=== PATIENT | male | born 1945 | race Caucasian/White ===

== ENCOUNTER → 2016-08-11 | Outpatient (CLI) | payer OTHER ==
[~2016-08-11] MED LIST: AMLODIPINE5 MG; ASPIRIN EC325 MG PO; BUPROBAN150 MG; LEVOTHYROXINE0.1 MG PO; LISINOPRIL10 MG PO; LOVASTATIN40 MG PO; MEN'S MULTIVITA1 TAB; METFORMIN500 MG; OXYBUTYNIN5 MG; PLAVIX75 MG; RANITIDINE150 MG; [UNRECOGNIZED DRUG - OTHER]
[2016-08-11 12:53] LABS: BILIRUBIN NEGATIVE (NEGATIVE); BLOOD NEGATIVE (NEGATIVE); CLARITY SL CLOUDY (CLEAR); COLOR YELLOW (YELLOW); GLUCOSE NEGATIVE (NEGATIVE); KETONE NEGATIVE (NEGATIVE); LEUKO ESTERASE 1+ (NEGATIVE); NITRITE NEGATIVE (NEGATIVE); PROTEIN NEGATIVE (NEGATIVE)
[2016-08-11 12:56] LABS: BASO % 0.5 % (0.0-1.0); EOS # 0.1 10*3/uL (0.0-0.4); EOS % 1.6 % (1.0-4.0); HEMATOCRIT 45.1 % (42.0-52.0); LYMPH # 2.1 10*3/uL (1.3-4.4); LYMPH % 25.2 % (27.0-41.0); MEAN CELL VOLUME 88.6 fl (80.0-94.0); MEAN CORPUSCULAR HGB 29.5 pg (27.0-31.0); MEAN CORPUSCULAR HGB CONC 33.3 g/dl (33.0-37.0); MEAN PLATELET VOLUME 11.3 fl (9.6-12.3); MONO # 0.7 10*3/uL (0.1-1.0); NEUT # 5.3 10*3/uL (2.3-7.9); NEUT % 64.5 % (47.0-73.0); PLATELET COUNT AUTOMATED 231 10*3/uL (130-400); RED BLOOD COUNT 5.09 10*6/uL (4.50-5.90); RED CELL DISTRI WIDTH 16.3 % (0-14.5); WHITE BLOOD COUNT 8.2 10*3/uL (4.8-10.8)
[2016-08-11 13:46] LABS: CALCIUM OXALATE CRYSTALS 1+; EPITHELIAL CELLS 0-2; MUCOUS TRACE
[2016-08-11 15:22] LABS: ALBUMIN 3.7 gm/dl (3.1-4.5); ALKALINE PHOSPHATASE 86 U/L (45-117); BILIRUBIN, TOTAL 0.4 mg/dl (0.2-1.0); BUN 15 mg/dl (7-24); CARBON DIOXIDE 22 mmol/L (21-32); CHLORIDE 109 mmol/L (98-107); CHOLESTEROL 159 mg/dL (<200); EST GLOM FILT AFRICAN AMERICAN > 60 ml/min; GLUCOSE 98 mg/dL (65-99); HDL CHOLESTEROL 49 mg/dl (40-60); LDL CHOLESTEROL 86 mg/dL (9-159); POTASSIUM 3.9 mmol/L (3.5-5.1); SGOT/AST 29 IU/L (3-35); SGPT/ALT 22 U/L (12-78); SODIUM 144 mmol/L (136-145); TOTAL PROTEIN 8.2 gm/dL (6.4-8.2); TRIGLYCERIDES 120 mg/dl (<150); VLDL CHOLESTEROL 24 mg/dL (6-40)
== END | disposition home or self-care (01) ==
LOC: LAB 11:48
PROVIDERS: Internal Medicine
DX: Z12.5 Encounter for screening for malignant neoplasm of prostate (principal); E78.5 Hyperlipidemia, unspecified; R53.83 Other fatigue; I65.23 Occlusion and stenosis of bilateral carotid arteries

== ENCOUNTER → 2016-08-18 | Outpatient (CLI) | payer OTHER | END | disposition home or self-care (01) | LOC: US 01:56 | DX: Z12.5 Encounter for screening for malignant neoplasm of prostate (principal); I65.23 Occlusion and stenosis of bilateral carotid arteries; R53.83 Other fatigue ==

== ENCOUNTER → 2016-11-18 | Outpatient (CLI) | payer OTHER | END | disposition home or self-care (01) | LOC: US 10:55 | DX: L03.116 Cellulitis of left lower limb (principal); R60.0 Localized edema ==

== ENCOUNTER → 2017-08-25 | Outpatient (CLI) | payer OTHER ==
[2017-08-25 11:36] LABS: BASO % 0.6 % (0.0-1.0); EOS # 0.1 10*3/uL (0.0-0.4); EOS % 1.8 % (1.0-4.0); HEMATOCRIT 43.3 % (42.0-52.0); HEMOGLOBIN 14.2 g/dl (14.0-18.0); LYMPH # 1.7 10*3/uL (1.3-4.4); LYMPH % 24.3 % (27.0-41.0); MEAN CELL VOLUME 89.8 fl (80.0-94.0); MEAN CORPUSCULAR HGB 29.5 pg (27.0-31.0); MEAN CORPUSCULAR HGB CONC 32.8 g/dl (33.0-37.0); MEAN PLATELET VOLUME 11.6 fl (9.6-12.3); MONO # 0.5 10*3/uL (0.1-1.0); MONO % 7.7 % (3.0-9.0); NEUT # 4.4 10*3/uL (2.3-7.9); NEUT % 64.7 % (47.0-73.0); PLATELET COUNT AUTOMATED 211 10*3/uL (130-400); RED BLOOD COUNT 4.82 10*6/uL (4.50-5.90); RED CELL DISTRI WIDTH 15.5 % (0-14.5); WHITE BLOOD COUNT 6.8 10*3/uL (4.8-10.8)
[2017-08-25 11:45] LABS: ALBUMIN 3.6 gm/dl (3.1-4.5); ALKALINE PHOSPHATASE 92 U/L (45-117); BUN 14 mg/dl (7-24); CHLORIDE 111 mmol/L (98-107); CREATININE 1.09 mg/dL (0.70-1.30); POTASSIUM 3.9 mmol/L (3.5-5.1); SGOT/AST 20 IU/L (3-35); SGPT/ALT 21 U/L (12-78); SODIUM 142 mmol/L (136-145); TOTAL PROTEIN 8.3 gm/dL (6.4-8.2)
== END | disposition home or self-care (01) ==
LOC: CT 10:00 → LAB 10:51
PROVIDERS: Urology
DX: K57.30 Diverticulosis of large intestine without perforation or abscess without bleeding (principal); R91.1 Solitary pulmonary nodule; E78.00 Pure hypercholesterolemia, unspecified; Z90.49 Acquired absence of other specified parts of digestive tract

== ENCOUNTER → 2017-11-18 | Outpatient (CLI) | payer OTHER | END | disposition home or self-care (01) | LOC: NM 09:46 | DX: C61 Malignant neoplasm of prostate (principal) ==

== ENCOUNTER → 2017-12-01 | Outpatient (CLI) | payer OTHER | END | disposition home or self-care (01) | LOC: RAD 11:27 | DX: M17.11 Unilateral primary osteoarthritis, right knee (principal); M19.019 Primary osteoarthritis, unspecified shoulder; M19.031 Primary osteoarthritis, right wrist; R93.89 Abnormal findings on diagnostic imaging of other specified body structures ==

== ENCOUNTER → 2017-12-15 | Outpatient (CLI) | payer OTHER ==
--- NOTE | ~2017-12-15 | EKG ---
[place], [place] ELECTROCARDIOGRAM REPORT NAME: JUSTIN OWUSU UNIT #: [id number] ROOM: DOCTOR: EPIPHANY DRAFT REPORT BIRTHDATE: [address] [facility] Test Date: 2017-12-15 Test Time: 13:45:38 Pat Name: JUSTIN OWUSU Department: Room: Gender: Automation Software Engineer: Stefanie Juárez : 1945 Requested By: JENNIFER ELLIOTT Order Number: [id number] Reading MD: Jeff Crump MD Measurements Intervals Edmond Rate: 90 P: 62 NM: 154 QRS: -48 QRSD: 75 T: 42 QT: 378 QTc: 463 Interpretive Statements Sinus rhythm Left anterior fascicular block Low voltage, extremity leads Borderline ST depression, anterior leads Baseline wander in lead(s) V2, V3, V4 No previous ECG available for comparison Electronically Signed On 12-15-2017 17:41:36 PDT by Jeff Crump MD CM:EKGRPT:ELECTROCARDIOGRAM REPORT [id number] JENNIFER SAMAYOA DRAFT REPORT JENNIFER ELLIOTT
[2017-12-15 14:31] LABS: ALBUMIN 3.7 gm/dl (3.1-4.5); ALKALINE PHOSPHATASE 98 U/L (45-117); BUN 18 mg/dl (7-24); CHLORIDE 106 mmol/L (98-107); CREATININE 1.05 mg/dL (0.70-1.30); POTASSIUM 3.9 mmol/L (3.5-5.1); SGOT/AST 25 IU/L (3-35); SGPT/ALT 23 U/L (12-78); SODIUM 139 mmol/L (136-145); TOTAL PROTEIN 8.7 gm/dL (6.4-8.2)
[2017-12-15 14:56] LABS: BASO % 0.5 % (0.0-1.0); EOS # 0.1 10*3/uL (0.0-0.4); EOS % 1.3 % (1.0-4.0); HEMATOCRIT 44.9 % (42.0-52.0); HEMOGLOBIN 14.3 g/dl (14.0-18.0); LYMPH # 1.6 10*3/uL (1.3-4.4); LYMPH % 21.1 % (27.0-41.0); MEAN CELL VOLUME 91.4 fl (80.0-94.0); MEAN CORPUSCULAR HGB 29.1 pg (27.0-31.0); MEAN CORPUSCULAR HGB CONC 31.8 g/dl (33.0-37.0); MEAN PLATELET VOLUME 11.5 fl (9.6-12.3); MONO # 0.7 10*3/uL (0.1-1.0); MONO % 8.9 % (3.0-9.0); NEUT # 5.2 10*3/uL (2.3-7.9); NEUT % 67.9 % (47.0-73.0); PLATELET COUNT AUTOMATED 253 10*3/uL (130-400); RED BLOOD COUNT 4.91 10*6/uL (4.50-5.90); RED CELL DISTRI WIDTH 15.4 % (0-14.5); WHITE BLOOD COUNT 7.7 10*3/uL (4.8-10.8)
== END | disposition home or self-care (01) ==
LOC: LAB 13:07
PROVIDERS: Nurse Practitioner Family
DX: Z01.818 Encounter for other preprocedural examination (principal); J43.9 Emphysema, unspecified; I10 Essential (primary) hypertension; N39.0 Urinary tract infection, site not specified; Z87.891 Personal history of nicotine dependence

== ENCOUNTER 2017-12-31 11:35 | Emergency (ER) | payer OTHER ==
[~2017-12-31] VITALS: Ht 175.2 cm; Wt 96.2 kg
== END 2017-12-31 15:56 | disposition short-term general hospital (02) ==
LOC: ED 11:35
DX: T83.84XA Pain due to genitourinary prosthetic devices, implants and grafts, initial encounter (principal); N99.820 Postprocedural hemorrhage of a genitourinary system organ or structure following a genitourinary system procedure

== ENCOUNTER → 2018-03-17 | Outpatient (CLI) | payer OTHER ==
[2018-03-18 09:09] LABS: PROSTATE SPECIFIC AG FREE 2.74 ng/mL; PROSTATE SPECIFIC AG, SERUM 7.2 ng/mL (0.0-4.0)
== END | disposition home or self-care (01) ==
LOC: LAB 13:32
PROVIDERS: Urology
DX: C61 Malignant neoplasm of prostate (principal)

== ENCOUNTER → 2018-05-13 | Outpatient (CLI) | payer OTHER ==
[2018-05-13 14:32] LABS: BASO % 0.6 % (0.0-1.0); EOS # 0.2 10*3/uL (0.0-0.4); EOS % 2.3 % (1.0-4.0); HEMATOCRIT 43.9 % (42.0-52.0); HEMOGLOBIN 14.2 g/dl (14.0-18.0); MEAN CELL VOLUME 86.8 fl (80.0-94.0); MEAN CORPUSCULAR HGB 28.1 pg (27.0-31.0); MEAN CORPUSCULAR HGB CONC 32.3 g/dl (33.0-37.0); MEAN PLATELET VOLUME 11.6 fl (9.6-12.3); MONO # 0.5 10*3/uL (0.1-1.0); MONO % 7.6 % (3.0-9.0); NEUT # 4.1 10*3/uL (2.3-7.9); NEUT % 60.1 % (47.0-73.0); PLATELET COUNT AUTOMATED 241 10*3/uL (130-400); RED BLOOD COUNT 5.06 10*6/uL (4.50-5.90); RED CELL DISTRI WIDTH 16.6 % (0-14.5); WHITE BLOOD COUNT 6.8 10*3/uL (4.8-10.8)
[2018-05-13 14:49] LABS: ALBUMIN 3.2 gm/dl (3.1-4.5); ALKALINE PHOSPHATASE 108 U/L (45-117); BUN 15 mg/dl (7-24); CHLORIDE 109 mmol/L (98-107); CREATININE 1.05 mg/dL (0.70-1.30); POTASSIUM 3.7 mmol/L (3.5-5.1); SGOT/AST 24 IU/L (3-35); SGPT/ALT 17 U/L (12-78); SODIUM 140 mmol/L (136-145); TOTAL PROTEIN 8.5 gm/dL (6.4-8.2)
[2018-05-14 08:15] LABS: PROSTATE SPECIFIC AG FREE 0.12 ng/mL; PROSTATE SPECIFIC AG, SERUM 0.2 ng/mL (0.0-4.0)
== END | disposition home or self-care (01) ==
LOC: LAB 13:37
PROVIDERS: Urology
DX: D40.0 Neoplasm of uncertain behavior of prostate (principal); E11.9 Type 2 diabetes mellitus without complications

== ENCOUNTER 2018-10-28 16:21 | Inpatient (IN) | payer OTHER ==
[~2018-10-28] VITALS: Ht 175.2 cm; Wt 99.3 kg
--- NOTE | 2018-10-28 17:00 | NUR ---
Time: 1699 A 73 year old MALE admitted to under services of DR. JAYSON KU,MAURO. [place]. Chief complaint: CELLULITIS OF LEG. FENG MOSQUEDA
--- NOTE | 2018-10-28 18:13 | NUR ---
DR. LOPEZ'S RESIDENT NOTIFIED OF CONSULT.
[2018-10-28] MEDS ORDERED: FUROSEMIDE40 MG PO (18:36)
[2018-10-28] MEDS ORDERED: SIMVASTATIN40 MG PO (18:36)
[2018-10-28] MEDS ORDERED: GOOD NEIGHBOR150 MG PO (18:37)
[2018-10-28] MEDS ORDERED: TAMSULOSIN HCL0.4 MG PO (18:38)
[2018-10-28] MEDS ORDERED: VITAMIN D32000 UNI1 PO (18:39)
[2018-10-28] MEDS ORDERED: BUDEPRION XL150 MG PO (18:41)
[2018-10-28 18:51] LABS: BASO % 0.4 % (0.0-1.0); EOS # 0.2 10*3/uL (0.0-0.4); HEMATOCRIT 42.8 % (42.0-52.0); HEMOGLOBIN 13.8 g/dl (14.0-18.0); LYMPH # 2.1 10*3/uL (1.3-4.4); LYMPH % 20.4 % (27.0-41.0); MEAN CELL VOLUME 90.9 fl (80.0-94.0); MEAN CORPUSCULAR HGB 29.3 pg (27.0-31.0); MEAN CORPUSCULAR HGB CONC 32.2 g/dl (33.0-37.0); MEAN PLATELET VOLUME 10.8 fl (9.6-12.3); MONO # 0.7 10*3/uL (0.1-1.0); MONO % 6.3 % (3.0-9.0); NEUT # 7.2 10*3/uL (2.3-7.9); NEUT % 70.5 % (47.0-73.0); PLATELET COUNT AUTOMATED 258 10*3/uL (130-400); RED BLOOD COUNT 4.71 10*6/uL (4.50-5.90); RED CELL DISTRI WIDTH 16.4 % (0-14.5); WHITE BLOOD COUNT 10.3 10*3/uL (4.8-10.8)
[2018-10-28 19:02] LABS: ALBUMIN 3.3 gm/dl (3.1-4.5); CREATININE 1.62 mg/dL (0.70-1.30); POTASSIUM 3.9 mmol/L (3.5-5.1); TOTAL PROTEIN 8.6 gm/dL (6.4-8.2)
[2018-10-28 20:00] VITALS: BP 144/72
--- NOTE | 2018-10-28 22:54 | NUR ---
24 HR chart check completed.
[2018-10-29] VITALS: BP 137/77
[2018-10-29 08:00] VITALS: BP 154/80
--- NOTE | 2018-10-29 08:32 | NUR ---
PHYSICAL THERAPY Nursing screen received and chart reviewed. Please refer PT evaluation if functional mobility declines. Thank you. Colleen Gomes,PT,DPT.
--- NOTE | 2018-10-29 11:00 | NUR ---
Ditching Machine Operating Engineer in to talk to patient. Patient states lives at home alone with . There are basement steps in the home. Physician: Dr. Haile Guillermo Pharmacy: [facility] Home health services: none Patient's level of ADLs: MINIMAL ASSIST Patient has working utilities: yes DME: cane Follow-up physician's appointment after d/c: he prefers to make his own follow up appt after discharge Does patient want to access PORTAL?: no Discharge plan discussed with patient. He lives at home alone. His passed 4 years ago. One of his daughters overdosed a couple of years ago. She and her fiance lived with him at the time. His other daughter per him has nothing to do with him. He states as far as she is concerned I'm to her. He is independent in his ADLs and ambulates with a cane. He states he is able to cook and shower. His only problem is getting his groceries. His neighbor has been helping him but it is not consistent. He states he only buys groceries once a month when he gets his check. Discussed home delivery. He states he doesn't have a computer. Discussed [employer] for food delivery and he doesn't want anyone coming in his house. Explained they would just drop of the food, not make it in his house and he was agreeable. Discussed with social welfare administrator. home mission worker to give patient information on [employer] and home delivery. Discussed home health care services and he refuses. He states I had them a few weeks ago and they are not able to help me with what I need help with like buying groceries. They gave me a couple of numbers to call but I was not able to find any help. When medically stable he will be discharged to home. He does drive and his car is here and he plans on driving home. KENDRICK FAGAN
--- NOTE | 2018-10-29 11:58 | NUR ---
JUSTIN OWUSU [id number] Please refer to the physician's history and physical for past medical history, comorbid conditions, and allergies. Diagnosis: LEFT LEG CELLULITIS FAILED OUTPT TREATMENT Josef Score: 16,AT RISK WOUND DESCRIPTIONS: Wound Number: 1 Location of the wound: left lower leg Thickness: Full Size: 7.1cm x 8.8cm x 0.1cm Tunneling: none Undermining: none Sinus Tract: none Presence of Exudate: Serous sanguineous Amount: Light Color: Yellow, Brown Odor: None Periwound Skin Appearance: Erythema, Edema Wound edges: approximated Pain (associated with wound): tender to touch How does patient state this happened? patient states that he has been dealing with this area for "months." If wound is on legs/feet or hands, capillary refill time, pulses, color temp, sensation: Cap refill < 3 seconds. Surface the patient is resting on: Position Pro SKIN PREVENTION RECOMMENDATION: 1. Pressure redistribution support surface as appropriate 2. Elevate heels 3. Remove boots/TEDS every shift and reapply 4. Head of bed 30 degrees as tolerated 5. Assess nutrition and hydration 6. Manage moisture 7. Avoid the use of containment devices while in bed 8. Use absorptive products on surfaces limit layers of linens on bed 9. Turn and reposition every 1-2 hours in bed and every 1 hour in chair as tolerated 10. Weight shifts every 15 minutes while up in chair 11. Offloading with pillows or device to keep heels elevated off bed 12. Monitor skin at least every shift 13. Inspect under medical devices twice a day WOUND TREATMENT RECOMMENDATIONS: Dr. Guillermo in room during assessment. Stated he would like to wait for podiatry to see patient. This nurse asked Dr. Guillermo if adaptic and kerlix could be place to left lower leg due to drainage. Dr. Guillermo agreed and dressing was applied. Continue Stage 2 guidelines to right buttock.
--- NOTE | 2018-10-29 12:20 | NUR ---
SUPPLY CRIB ATTENDANT received notice of the patient needing information on food services. SUPPLY CRIB ATTENDANT provided the patient with a list of meal delivery services along with the information for [facility] grocery delivery services. SUPPLY CRIB ATTENDANT also contacted the patients insurance to inquire about meal benefits. The patient does not have any meal benefits through his insurance. -DAYO Limon
--- NOTE | 2018-10-29 12:40 | NUR ---
A MESSAGE WAS LEFT FOR DR. DEGROOT REGARDING CONSULT.
[2018-10-29] MEDS ORDERED: POTASSIUM CHLO10 ME5 PO (12:53)
[2018-10-29] MEDS ORDERED: KLOR-CON 1010 ME1 PO (12:53)
--- NOTE | 2018-10-29 13:35 | NUR ---
Nursing screen received and chart reviewed. Patient admitted w/ LLE cellulitis. He lives home alone and is independent in ADLs and mobility. At this time no OT indicated. If patient should have a decline in ADls then refer to OT. Thank you. Cielo Pineda OTR/l
[2018-10-29 16:00] VITALS: BP 106/69
--- NOTE | 2018-10-29 16:09 | NUR ---
IN TO ROOM. PATIENT SITTING ON SIDE OF BED. NO S/S OF SOB OR DISTRESS NOTED. NO STATED COMPLAINTS AT THIS TIME. PATIENT STATES NICOTINE PATCH IS HELPING. RESPIRATIONS ARE EASY AND REGULAR ON ROOM AIR. DENIES PAIN. BED IN LOWEST LOCKED POSITION AND CALL LIGHT WITHIN REACH.
[2018-10-29 20:00] VITALS: BP 127/72
--- NOTE | 2018-10-29 20:00 | NUR ---
PATIENT SITTING TO SIDE OF BED, STATES HE CAN TELL A DIFFERENCE IN HIS RT LEG. LESS SWELLING AND REDNESS. LT LEG WRAPPED, DRY AND INTACT. PATIENT DENIES ANY PAIN AT THIS TIME. HAVING NICOTINE WITHDRAWL, WEARING A PATCH, HE STATES IS NOT EFFECTIVE. PATIENT HOPING TO GO HOME SOON. PATIENT LEFT WITH CALL LIGHT IN REACH.
[2018-10-30] VITALS: BP 128/89
--- NOTE | 2018-10-30 00:42 | NUR ---
24 HR chart check completed.
[2018-10-30 08:00] VITALS: BP 111/61
--- NOTE | 2018-10-30 10:45 | NUR ---
IN TO SEE PATIENT.
[2018-10-30 12:00] VITALS: BP 110/69
--- NOTE | 2018-10-30 15:35 | NUR ---
PATIENT UP IN CHAIR. NO DISTRESS NOTED. DRESSING D/I TO LLE. PT DENIES ANY PAIN/DISCOMFORT AT THIS TIME. ENCOURAGED TO ELEVATE BLLE. WILL CONTINUE TO MONITOR. VSS. CALL LIGHT WITHIN REACH.
[2018-10-30 16:00] VITALS: BP 120/63
[2018-10-30 20:00] VITALS: BP 134/81
[2018-10-31] VITALS: BP 127/68
--- NOTE | 2018-10-31 00:44 | NUR ---
24 HR chart check completed.
--- NOTE | 2018-10-31 04:00 | NUR ---
SLEEPING IN RECLINER CHAIR FEET ELEVATED. RESP. EASY AND REG. NO ACUTE DISTRESS NOTED.
[2018-10-31 08:00] VITALS: BP 127/74
[2018-10-31 12:00] VITALS: BP 140/61
--- NOTE | 2018-10-31 12:44 | NUR ---
DRESSING TO LEFT LOWER LEG REMOVED AND REAPPLIED BY PODIATARY RESIDENT
--- NOTE | 2018-10-31 14:59 | NUR ---
IV started right forearm with #22 angiocath after 0 attempts. The IV site was prepped with Chloraprep. Heparin lock attached. Sterile dressing applied. Patient tolerated precedure well. Procedure performed according to [facility] policy & procedure. IV LEFT FA D/C, DRESSING APPLIED CORAZON LILLY
[2018-10-31 16:00] VITALS: BP 115/58
--- NOTE | 2018-10-31 20:00 | NUR ---
ALERT ORIENTED X 3 SITTING IN RECLINER CHAIR. LUNG SOUNDS CLEAR BILAT. ABD SOFT NORMOACTIVE BOWEL SOUNDS X 4. BOTH LOWER LEGS DRESSING INTACT. TOES NAILS LONG DARK BROWN YELLOW. PT. STATES UN ABLE TO CUT THEM BECAUSE HE CAN'T REACH THEM.
--- NOTE | 2018-10-31 22:00 | NUR ---
PT. REFUSED BEDSIDE GLUCOSE STATED TIRED OF HAVING HIS FINGERS STUCK SO MUCH BUT HE WOULD HAVE MORNING ONE DONE.
[2018-11-01] VITALS: BP 147/83
--- NOTE | 2018-11-01 01:56 | NUR ---
24 HR chart check completed.
--- NOTE | 2018-11-01 03:44 | NUR ---
PATIENT RESTING WITH EYES CLOSED IN CHAIR WITH FEET ELEVATED. RESPIRATIONS EASY AND UNLABORED. CALL LIGHT WITHIN REACH. WILL MONITOR.
--- NOTE | 2018-11-01 05:36 | NUR ---
PATIENT REFUSING BEDSIDE GLUCOSE. STATES THAT HE DOES NOT TAKE IT AT HOME AND DOESNT UNDERSTAND WHY HE HAS TO TAKE IT HERE. ALSO STATES THAT HIS FINGERS ARE SORE FROM IT BEING CHECKED. WILL FOLLOW UP WITH .
--- NOTE | 2018-11-01 07:30 | NUR ---
PATIENT REFUSED BLOOD SUGAR. RATIONAL GIVEN FOR TAKING BLOOD SUGAR. PATIENT STILL REFUSES.
[2018-11-01 08:00] VITALS: BP 144/74
[2018-11-01 08:39] LABS: BASO % 0.4 % (0.0-1.0); EOS # 0.3 10*3/uL (0.0-0.4); EOS % 3.7 % (1.0-4.0); HEMATOCRIT 39.5 % (42.0-52.0); HEMOGLOBIN 12.8 g/dl (14.0-18.0); LYMPH # 1.5 10*3/uL (1.3-4.4); LYMPH % 21.2 % (27.0-41.0); MEAN CELL VOLUME 90.4 fl (80.0-94.0); MEAN CORPUSCULAR HGB 29.3 pg (27.0-31.0); MEAN CORPUSCULAR HGB CONC 32.4 g/dl (33.0-37.0); MEAN PLATELET VOLUME 10.8 fl (9.6-12.3); MONO # 0.5 10*3/uL (0.1-1.0); MONO % 7.3 % (3.0-9.0); NEUT # 4.8 10*3/uL (2.3-7.9); NEUT % 67.1 % (47.0-73.0); PLATELET COUNT AUTOMATED 229 10*3/uL (130-400); RED BLOOD COUNT 4.37 10*6/uL (4.50-5.90); RED CELL DISTRI WIDTH 16.4 % (0-14.5); WHITE BLOOD COUNT 7.1 10*3/uL (4.8-10.8)
[2018-11-01 09:03] LABS: BUN 12 mg/dl (7-24); CREATININE 1.03 mg/dL (0.70-1.30)
--- NOTE | 2018-11-01 11:12 | NUR ---
PATIENT REFUSES BLOOD SUGAR. RATIONAL GIVEN FOR TAKING BLOOD SUGAR. PATIENT STILL DECLINES.
--- NOTE | 2018-11-01 13:35 | NUR ---
24 HOUR CHART CHECK COMPLETE.
[2018-11-01 16:00] VITALS: BP 138/75
--- NOTE | 2018-11-01 16:34 | NUR ---
PATIENT REFUSED TO HAVE BLOOD SUGAR CHECKED. RATIONAL GIVEN FOR TAKING BLOOD SUGAR. PATIENT STILL REFUSES.
--- NOTE | 2018-11-01 21:31 | NUR ---
REFUSED BSG CHECK.
[2018-11-02] VITALS: BP 148/79
[2018-11-02 08:00] VITALS: BP 151/80
--- NOTE | 2018-11-02 08:00 | NUR ---
Patient resting quietly with no c/o discomfort. Respirations easy and regular. Vital signs stable. No overt distress. CALL LIGHT WITHIN REACH. QUIQUE INIGUEZ
--- NOTE | 2018-11-02 09:00 | NUR ---
Patient Navigator in to see patient. No new needs or request at this time. He denies any home needs. When medically stable he will be discharged to home.
[2018-11-02 12:00] VITALS: BP 148/78
--- NOTE | 2018-11-02 12:37 | NUR ---
24 HOUR CHART CHECK COMPLETED.
--- NOTE | 2018-11-02 15:55 | NUR ---
PATIENT REFUSED BLOOD SUGAR CHECK. RATIONAL FOR BLOOD SUGAR EXPLAINED. PATIENT STILL REFUSED.
[2018-11-02 20:00] VITALS: BP 145/76
[2018-11-03] VITALS: BP 159/69
--- NOTE | 2018-11-03 00:23 | NUR ---
REMAINS IN RECLINER CHAIR AT BEDSIDE. NO C/O'S VOICED. NO DISTRESS NOTED. KAYLEE WRAPS INTACT TO BILATERAL LOWER EXTREMITIES. NO DRNG NOTED. HEP LOCK INTACT.
--- NOTE | 2018-11-03 02:17 | NUR ---
RESTING IN RECLINER WITH EYES CLOSED. APPEARS TO BE SLEEPING.
[2018-11-03 06:55] LABS: BUN 12 mg/dl (7-24); CHLORIDE 107 mmol/L (98-107); CREATININE 0.93 mg/dL (0.70-1.30); POTASSIUM 3.3 mmol/L (3.5-5.1); SODIUM 139 mmol/L (136-145)
--- NOTE | 2018-11-03 07:58 | NUR ---
PT RESTING IN CHAIR . NO DISTRESS NOTED. WILL MONITOR
[2018-11-03 08:00] VITALS: BP 147/77
--- NOTE | 2018-11-03 09:00 | NUR ---
Bender Hand in to see patient. He is sitting up in his bedside chair eating breakfast. No new needs or request at this time. He denies any home needs. When medically stable he will be discharged to home.
[2018-11-03 12:00] VITALS: BP 119/80
[2018-11-03] MEDS ORDERED: SEPTDS PO (13:45)
[2018-11-03] MEDS ORDERED: KEFLEX500 M1 PO (13:45)
--- NOTE | 2018-11-03 13:54 | NUR ---
Discussed with patient Anastacio Navarro call ahead for groceries to be delivered. He states he gets his groceries from [employer]. Patient has information in his bedside table from social work administrator regarding meals on wheels. He states that is $7 for a meal, I might as well buy my own food and make it. Explained if he is having difficulty in getting his meals that is a way to have meals delivered. He states he doesn't want anyone coming into his house as it needs cleaned. Explained they would just drop off the meals to him and not cook them in his house.
--- NOTE | 2018-11-03 14:09 | NUR ---
CALLED AND SPOKE PODIATRY RESIDENT REGARDING PT DC . KAYLEE WRAPS TO BE APPLIED AND THEN PT TO FOLLOW UP WITH DR CELESTE
--- NOTE | 2018-11-03 14:33 | NUR ---
PT REFUSED DC WOUND PHOTOS
--- NOTE | 2018-11-03 14:58 | NUR ---
TUBE BLOWER followed back up with patient from 10/29/18. TUBE BLOWER provided patient with information on Food Pantries in the local area, along with a drive through pantry. TUBE BLOWER also provided patient with information for [employer] services and information to apply for [employer]. If eligible he would be able to have the [employer] delivered for free. The patient was explained this. The patient also stated he has the information from 10/29/18 in his dresser drawer there in the room. -DAYO Limon
--- NOTE | 2018-11-03 15:30 | NUR ---
PATIENT FRIEND WAS AT BEDSIDE. PATIENT HAD DROVE HIMSELF IN AND STATES HE WILL BE DRIVING HIMSELF HOME, STATES HE IS ABLE TO USE HIS FOOT. PATIENT REFUSING ANY OTHER MEANS OF TRANSPORTATION. PATIENT IS ALERT & ORIENT X3.
--- NOTE | 2018-11-03 15:32 | NUR ---
Discharge instructions reviewed with patient/family. Patient receptive and verbalizes understanding. Follow-up care TO arranged BY PATIENT. Written instructions given to patient/family. IV WAS REMOVED BY PRIOR NURSE. PATIENT REFUSED WOUND PHOTOS ON DISCHARGE. SHARAD TARIQ
== END 2018-11-03 15:32 | disposition home or self-care (01) | DRG 602 ==
LOC: 4E 16:21
PROVIDERS: ADMIT Internal Medicine
DX: L03.116 Cellulitis of left lower limb (principal); N17.0 Acute kidney failure with tubular necrosis; L97.909 Non-pressure chronic ulcer of unspecified part of unspecified lower leg with unspecified severity; R32 Unspecified urinary incontinence; E03.9 Hypothyroidism, unspecified; E78.5 Hyperlipidemia, unspecified; K21.9 Gastro-esophageal reflux disease without esophagitis; N40.0 Benign prostatic hyperplasia without lower urinary tract symptoms; F17.210 Nicotine dependence, cigarettes, uncomplicated; M17.0 Bilateral primary osteoarthritis of knee; B35.1 Tinea unguium; F32.9 Major depressive disorder, single episode, unspecified; E55.9 Vitamin D deficiency, unspecified; E53.8 Deficiency of other specified B group vitamins; R60.0 Localized edema; E11.51 Type 2 diabetes mellitus with diabetic peripheral angiopathy without gangrene; C61 Malignant neoplasm of prostate; I87.8 Other specified disorders of veins; Z66 Do not resuscitate; Z51.5 Encounter for palliative care; Z86.73 Personal history of transient ischemic attack (TIA), and cerebral infarction without residual deficits; Z80.0 Family history of malignant neoplasm of digestive organs; Z83.79 Family history of other diseases of the digestive system; Z79.899 Other long term (current) drug therapy

== ENCOUNTER 2019-05-20 20:44 | Inpatient (IN) | payer OTHER ==
[~2019-05-20] VITALS: Ht 175.2 cm; Wt 102.7 kg
[2019-05-20 20:44] VITALS: BP 150/99
[~2019-05-20 20:44] MED LIST changes: +BUDEPRION XL150 MG PO; +FUROSEMIDE40 MG PO; +GOOD NEIGHBOR150 MG PO; +KEFLEX500 M1 PO; +KLOR-CON 1010 ME1 PO; -OXYBUTYNIN5 MG; +OXYBUTYNIN5 MG PO; +POTASSIUM CHLO10 ME5 PO; +SEPTDS PO; +SIMVASTATIN40 MG PO; +TAMSULOSIN HCL0.4 MG PO; +VITAMIN D32000 UNI1 PO
[2019-05-20 22:15] LABS: BILIRUBIN NEGATIVE (NEGATIVE); BLOOD 3+ (NEGATIVE); CLARITY CLOUDY (CLEAR); COLOR YELLOW (YELLOW); GLUCOSE NEGATIVE (NEGATIVE); KETONE NEGATIVE (NEGATIVE); LEUKO ESTERASE 2+ (NEGATIVE); NITRITE NEGATIVE (NEGATIVE); UROBILINOGEN 0.2 E.U./dl (0.2-1.0)
[2019-05-20 22:20] LABS: BACTERIA 4+; RBC TNTC rbc/hpf (0-2); WBC TNTC wbc/hpf (0-5)
[2019-05-20 23:03] LABS: BASO % 0.2 % (0.0-1.0); HEMATOCRIT 46.5 % (42.0-52.0); HEMOGLOBIN 15.6 g/dl (14.0-18.0); LYMPH # 0.8 10*3/uL (1.3-4.4); LYMPH % 6.8 % (27.0-41.0); MEAN CELL VOLUME 89.4 fl (80.0-94.0); MEAN CORPUSCULAR HGB CONC 33.5 g/dl (33.0-37.0); MEAN PLATELET VOLUME 10.6 fl (9.6-12.3); MONO # 0.7 10*3/uL (0.1-1.0); MONO % 6.1 % (3.0-9.0); NEUT # 10.2 10*3/uL (2.3-7.9); NEUT % 86.4 % (47.0-73.0); PLATELET COUNT AUTOMATED 252 10*3/uL (130-400); RED CELL DISTRI WIDTH 15.8 % (0-14.5); WHITE BLOOD COUNT 11.9 10*3/uL (4.8-10.8)
[2019-05-20 23:10] LABS: ACT PARTIAL THROMBO TIME 24.2 SECONDS (20.0-32.1)
[2019-05-20 23:12] VITALS: BP 142/96
[2019-05-20 23:14] LABS: ALBUMIN 2.9 gm/dl (3.1-4.5); ALKALINE PHOSPHATASE 96 U/L (45-117); BUN 22 mg/dl (7-24); CHLORIDE 109 mmol/L (98-107); LIPASE 327 U/L (73-393); POTASSIUM 3.9 mmol/L (3.5-5.1); SGOT/AST 448 IU/L (3-35); SGPT/ALT 81 U/L (12-78); SODIUM 137 mmol/L (136-145); TOTAL PROTEIN 8.7 gm/dL (6.4-8.2)
[2019-05-20 23:18] LABS: TROPONIN I < 0.015 ng/ml (<0.045)
[2019-05-21 01:00] VITALS: BP 133/67
[2019-05-21 08:00] VITALS: BP 134/70
[2019-05-21 12:00] VITALS: BP 151/69
[2019-05-21 16:00] VITALS: BP 156/65
[2019-05-21] MEDS ORDERED: WELLBUTRIN XL150 MG PO (16:57)
[2019-05-21 20:00] VITALS: BP 105/64
== END 2019-05-21 20:45 | disposition short-term general hospital (02) | DRG 872 ==
LOC: ED 20:44 → 4E 05-21 00:39
PROVIDERS: Emergency Medicine Emergency Medical Services; ADMIT Internal Medicine
DX: A41.9 Sepsis, unspecified organism (principal); S22.43XA Multiple fractures of ribs, bilateral, initial encounter for closed fracture; N17.9 Acute kidney failure, unspecified; L03.115 Cellulitis of right lower limb; L03.116 Cellulitis of left lower limb; E87.2 Acidosis; F33.2 Major depressive disorder, recurrent severe without psychotic features; L03.114 Cellulitis of left upper limb; L02.512 Cutaneous abscess of left hand; N39.0 Urinary tract infection, site not specified; R65.20 Severe sepsis without septic shock; E88.09 Other disorders of plasma-protein metabolism, not elsewhere classified; S60.522A Blister (nonthermal) of left hand, initial encounter; E11.9 Type 2 diabetes mellitus without complications; K21.9 Gastro-esophageal reflux disease without esophagitis; W19.XXXA Unspecified fall, initial encounter; T79.6XXA Traumatic ischemia of muscle, initial encounter; R31.9 Hematuria, unspecified; Z96.652 Presence of left artificial knee joint; E89.0 Postprocedural hypothyroidism; Z79.899 Other long term (current) drug therapy; Y93.89 Activity, other specified; Y92.098 Other place in other non-institutional residence as the place of occurrence of the external cause; Y99.8 Other external cause status; Z80.0 Family history of malignant neoplasm of digestive organs; Z85.46 Personal history of malignant neoplasm of prostate

== ENCOUNTER 2019-06-15 14:35 | Inpatient (IN) | payer OTHER ==
[~2019-06-15] VITALS: Ht 175.2 cm; Wt 92.2 kg
[2019-06-15] VITALS (13 sets, daily range): BP systolic 105–122; BP diastolic 67–84
[~2019-06-15 14:35] MED LIST changes: +WELLBUTRIN XL150 MG PO
--- NOTE | 2019-06-15 15:15 | NUR ---
PT. INSTRUCTED ON INHALER AND USE. ASSISTED PT. WITH INHALER. PT GIVEN 2 PUFFS OF VENTOLIN INHALERS. TOLERATED WELL.
[2019-06-15 15:44] LABS: BASO % 0.2 % (0.0-1.0); EOS # 0.1 10*3/uL (0.0-0.4); EOS % 1.1 % (1.0-4.0); HEMATOCRIT 28.8 % (42.0-52.0); LYMPH # 1.2 10*3/uL (1.3-4.4); LYMPH % 26.1 % (27.0-41.0); MEAN CELL VOLUME 98.3 fl (80.0-94.0); MEAN CORPUSCULAR HGB 30.4 pg (27.0-31.0); MEAN CORPUSCULAR HGB CONC 30.9 g/dl (33.0-37.0); MEAN PLATELET VOLUME 11.3 fl (9.6-12.3); MONO # 0.3 10*3/uL (0.1-1.0); MONO % 5.8 % (3.0-9.0); NEUT # 2.9 10*3/uL (2.3-7.9); NEUT % 65.2 % (47.0-73.0); NUCLEATED RED BLOOD CELL 0.4 % (0.0-0.0); PLATELET COUNT AUTOMATED 205 10*3/uL (130-400); RED BLOOD COUNT 2.93 10*6/uL (4.50-5.90); RED CELL DISTRI WIDTH 18.7 % (0-14.5); WHITE BLOOD COUNT 4.5 10*3/uL (4.8-10.8)
[2019-06-15 16:00] LABS: ALBUMIN 2.6 gm/dl (3.1-4.5); ALKALINE PHOSPHATASE 107 U/L (45-117); BUN 15 mg/dl (7-24); CHLORIDE 106 mmol/L (98-107); CREATININE 1.01 mg/dL (0.70-1.30); SGOT/AST 68 IU/L (3-35); SGPT/ALT 28 U/L (12-78); SODIUM 139 mmol/L (136-145); TOTAL PROTEIN 7.1 gm/dL (6.4-8.2)
[2019-06-15 16:03] LABS: POTASSIUM 3.2 mmol/L (3.5-5.1)
--- NOTE | 2019-06-15 19:15 | NUR ---
PATIENT REPORT GIVEN TO THIS RN.
[2019-06-15 20:26] LABS: BACTERIA TRACE; BILIRUBIN NEGATIVE (NEGATIVE); BLOOD 2+ (NEGATIVE); CLARITY SL CLOUDY (CLEAR); COLOR YELLOW (YELLOW); GLUCOSE NEGATIVE (NEGATIVE); KETONE NEGATIVE (NEGATIVE); LEUKO ESTERASE TRACE (NEGATIVE); NITRITE NEGATIVE (NEGATIVE); SPECIFIC GRAVITY 1.025 (1.005-1.030); UROBILINOGEN 0.2 E.U./dl (0.2-1.0); WBC 16-20 wbc/hpf (0-5)
--- NOTE | 2019-06-15 21:13 | NUR ---
PATIENT IN BED RESTING EYES AT THIS TIME. NO ACUTE DISTRESS NOTED. CONT FBI PROFILER IN PLACE. RN WILL CONT TO MONITOR
--- NOTE | 2019-06-15 23:17 | NUR ---
A 74, admitted to , under the services of RACHEL Steiner DO with a diagnosis of PNEUMONIA. Chief complaint is SHORTNESS OF BREATH. Patient arrived via stretcher from ER. Monitor applied. Initial assessment completed. Vital signs taken and recorded. RACHEL STEINER DO notified of admission to the unit. Orders received. See assessment for past medical history, medications and allergies. Patient and/or family oriented to unit. [facility]. Clothing/patient valuable form completed. SULEIMAN REMY
[2019-06-15] MEDS ORDERED: ACETAMINOPHEN500 M5 PO (23:47)
[2019-06-15] MEDS ORDERED: ALBUTEROL1.25 MG/3 INH (23:48)
[2019-06-15] MEDS ORDERED: ASPIRIN81 M1 PO (23:50)
[2019-06-15] MEDS ORDERED: ARTIFICIAL TEAR1514 OP (23:50)
[2019-06-15] MEDS ORDERED: POLYSPORIN OI28.3 GM T (23:52)
[2019-06-15] MEDS ORDERED: DULCOLAX10 M1 R (23:53)
[2019-06-15] MEDS ORDERED: DILTIAZEM HCL90 MG PO (23:54)
[2019-06-15] MEDS ORDERED: GOOD SENSE ACID20 MG PO (23:55)
[2019-06-15] MEDS ORDERED: ELIQUIS5 M1 PO (23:55)
[2019-06-15] MEDS ORDERED: LASIX40 MG PO (23:57)
[2019-06-15] MEDS ORDERED: FLEET ENEMA EX230 M1 R (23:57)
[2019-06-15] MEDS ORDERED: HUMALOG100 UNIT/2 SC (23:58)
[2019-06-16] MEDS ORDERED: Ipratropium Brom3 ML INH
[2019-06-16] MEDS ORDERED: LIDODERM1 EACH T (00:04)
[2019-06-16] MEDS ORDERED: MILK OF MA400 MG/52 PO (00:07)
[2019-06-16] MEDS ORDERED: MILLTRIUM SENI1 EACH PO (00:09)
[2019-06-16] MEDS ORDERED: NICODERM CQ1 EAC2 T (00:09)
[2019-06-16] MEDS ORDERED: NORCO 5-325 TA1 EACH PO (00:10)
[2019-06-16] MEDS ORDERED: OMEPRAZOLE20 M2 PO (00:10)
[2019-06-16] MEDS ORDERED: OXYBUTYNIN5 MG PO (00:11)
[2019-06-16] MEDS ORDERED: OXYBUTYNIN10 MG PO (00:13)
[2019-06-16] MEDS ORDERED: ZOFRAN4 MG PO (00:15)
--- NOTE | 2019-06-16 00:17 | NUR ---
DR WASHBURN AWARE OF PATIENT HAVING 7 BEAT RUN OF VTACH
--- NOTE | 2019-06-16 00:17 | NUR ---
MED REC COMPLETED WITH LIST FROM [facility]
--- NOTE | 2019-06-16 05:11 | NUR ---
JUSTIN OWUSU [id number] Please refer to the physician's history and physical for past medical history, comorbid conditions, and allergies. Diagnosis: ACUTE RESPIRATORY DISTRESS,PNEUMONIA Josef Score: 10,HIGH RISK WOUND DESCRIPTIONS: Wound Number: 1 Location of the wound: left palm side of hand Thickness: Full Size: 6.5cm x 3.5cm x <0.1cm Tunneling: none Undermining: none Sinus Tract: none Presence of Exudate: none Amount: None Color: Brown, black, yellow Odor: None Periwound Skin Appearance: Normal Wound edges: approximated Pain (associated with wound): none at time of assessment How does patient state this happened? pt stated he fell Wound Number: 2 Location of the wound: left outer wrist Thickness: Full Size: 8.0cm x 2.0cm x <0.1cm Tunneling: none Undermining: none Sinus Tract: none Presence of Exudate: none Amount: None Color: Brown Odor: None Periwound Skin Appearance: Normal Wound edges: approximated Pain (associated with wound): none at time of assessment How does patient state this happened? pt stated he fell Wound Number: 3 Location of the wound: bridge of nose Type of wound: scab Thickness: Partial Size: 0.5cm x 1.0cm x <0.1cm Tunneling: none Undermining: none Sinus Tract: none Presence of Exudate: none Amount: None Color: Brown, red Odor: None Periwound Skin Appearance: Normal Wound edges: approximated Pain (associated with wound): none at time of assessment How does patient state this happened? pt stated he fell Wound Number: 4 Left elbow red and blanchable at time of assessment. No drainage noted at time of assessment. No open areas noted at time of assessment. Wound Number: 5 Location of the wound: right great toe Type of wound: DTI Size: 1.7cm x 1.0cm x 0.1cm Tunneling: none Undermining: none Sinus Tract: none Presence of Exudate: none Amount: None Color: Black, dark red, purple Odor: None Periwound Skin Appearance: Normal Wound edges: intact blood blister Pain (associated with wound): none at time of assessment How does patient state this happened? pt stated he fell Wound Number: 6 Location of the wound: right outer foot Type of wound: DTI Size: 2.0cm x 1.5cm x <0.1cm Tunneling: none Undermining: none Sinus Tract: none Presence of Exudate: none Amount: None Color: Purple, red Odor: None Periwound Skin Appearance: Normal Wound edges: intact blood blister Pain (associated with wound): none at time of assessment How does patient state this happened? pt stated he fell Wound Number: 7 & 9 Location of the wound: right lower leg Thickness: Partial Size: 15.0cm x 15.0cm x <0.1cm Tunneling: none Undermining: none Sinus Tract: none Presence of Exudate: none Amount: None Color: Red, brown Odor: None Periwound Skin Appearance: dry and flaky Wound edges: approximated Pain (associated with wound): none at time of assessment How does patient state this happened? pt stated he fell Wound Number: 8 Location of the wound: left mallory Thickness: Partial Size: 3.5cm x 0.7cm x 0.1cm Tunneling: none Undermining: none Sinus Tract: none Presence of Exudate: none Amount: None Color: Brown, Red Odor: None Periwound Skin Appearance: dry and flaky Wound edges: approximated Pain (associated with wound): none at time of assessment How does patient state this happened? pt stated he fell Wound Number: 10 Location of the wound: coccyx Type of wound: stage 2 Thickness: Partial Size: 3.0cm x 1.0cm x <0.1cm Tunneling: none Undermining: none Sinus Tract: none Presence of Exudate: serous Amount: Light Color: Red Odor: None Periwound Skin Appearance: Scar tissue Wound edges: approximated Pain (associated with wound): none at time of assessment How does patient state this happened? pt stated he fell Wound Number: 11 Location of the wound: left scrotum Type of wound: Stage 2 Thickness: Partial Size: 1.0cm x 1.0cm x 0.1cm Tunneling: none Undermining: none Sinus Tract: none Presence of Exudate: Serous Amount: Light Color: Red Odor: None Periwound Skin Appearance: Normal Wound edges: approximated Pain (associated with wound): none at time of assessment How does patient state this happened? pt stated he fell Wound Number: 12 Location: Right knee intact scabbed area noted. No drainage at time of assessment. Wound Number: 13 Location of the wound: left 5th finger Thickness: Full Size: 1.7cm x 1.4cm x <0.1cm Tunneling: none Undermining: none Sinus Tract: none Presence of Exudate: none Amount: None Color: Red, black, yellow Odor: None Periwound Skin Appearance: Normal Wound edges: approximated Pain (associated with wound): none at time of assessment How does patient state this happened? pt stated he fell Wound Number: 14 Location of the wound: left 5th finger medial aspect Thickness: Full Size: 3.0cm x 2.5cm x <0.1cm Tunneling: none Undermining: none Sinus Tract: none Presence of Exudate: none Amount: None Color: Red, black, yellow Odor: None Periwound Skin Appearance: Normal Wound edges: approximated Pain (associated with wound): none at time of assessment How does patient state this happened? pt stated he fell Surface the patient is resting on: Isoflex SKIN PREVENTION RECOMMENDATION: 1. Pressure redistribution support surface as appropriate 2. Elevate heels 3. Remove boots/TEDS every shift and reapply 4. Head of bed 30 degrees as tolerated 5. Assess nutrition and hydration 6. Manage moisture 7. Avoid the use of containment devices while in bed 8. Use absorptive products on surfaces limit layers of linens on bed 9. Turn and reposition every 1-2 hours in bed and every 1 hour in chair as tolerated 10. Weight shifts every 15 minutes while up in chair 11. Offloading with pillows or device to keep heels elevated off bed 12. Monitor skin at least every shift 13. Inspect under medical devices twice a day WOUND TREATMENT RECOMMENDATIONS: Partial thickness guidelines: Cleanse bridge of nose with nss and apply sureprep around the wound hydrogel to wound bed and cover with bandaid every 2 days and prn for soiling. Elbow protectors to bilateral elbows for protections. Wheelchair cushion when oob. Heel raiser pro boots to bilateral feet while in bed. Consult podiatry for areas to bilateral lower extremites. Venous and arterial studies to bilateral lower extremities due to non-healing wounds. DTI guidelines: Apply sureprep to right great toe, right outer foot, base of right great toe medial aspect and cover with optifoam gentle daily and prn for soiling. Cleanse coccyx and scrotum with soap and water and apply calazime every shift and prn for soiling. Cleanse bilateral lower extremities with soap and water and apply lac-hydrin BID. Full thickness guidelines: Cleanse left palm side of hand, left outer wrist, left 5th finger and medial aspect of left 5th finger with nss and apply betadine soaked adaptic and cover with dsd daily and prn for soiling. Consult Dr. Lopes for possible debridement of left hand.
[2019-06-16 06:17] LABS: BASO % 0.4 % (0.0-1.0); EOS # 0.1 10*3/uL (0.0-0.4); EOS % 1.1 % (1.0-4.0); HEMATOCRIT 31.5 % (42.0-52.0); LYMPH # 1.1 10*3/uL (1.3-4.4); LYMPH % 25.3 % (27.0-41.0); MEAN CORPUSCULAR HGB 30.1 pg (27.0-31.0); MEAN CORPUSCULAR HGB CONC 29.8 g/dl (33.0-37.0); MONO # 0.2 10*3/uL (0.1-1.0); MONO % 5.4 % (3.0-9.0); NEUT % 66.5 % (47.0-73.0); NUCLEATED RED BLOOD CELL 0.4 % (0.0-0.0); PLATELET COUNT AUTOMATED 213 10*3/uL (130-400); RED BLOOD COUNT 3.12 10*6/uL (4.50-5.90); RED CELL DISTRI WIDTH 18.8 % (0-14.5); WHITE BLOOD COUNT 4.5 10*3/uL (4.8-10.8)
[2019-06-16 06:27] LABS: ALBUMIN 2.5 gm/dl (3.1-4.5); ALKALINE PHOSPHATASE 102 U/L (45-117); BUN 13 mg/dl (7-24); CHLORIDE 108 mmol/L (98-107); CHOLESTEROL 124 mg/dL (<200); CREATININE 0.92 mg/dL (0.70-1.30); HDL CHOLESTEROL 27 mg/dl (40-60); LDL CHOLESTEROL 69 mg/dL (9-159); SGOT/AST 52 IU/L (3-35); SGPT/ALT 26 U/L (12-78); SODIUM 139 mmol/L (136-145); TOTAL PROTEIN 7.1 gm/dL (6.4-8.2); TRIGLYCERIDES 142 mg/dl (<150); VLDL CHOLESTEROL 28 mg/dL (6-40)
[2019-06-16 06:33] LABS: FREE T4 1.02 ng/dl (0.76-1.46)
--- NOTE | 2019-06-16 07:16 | NUR ---
Dr. Alexander given wound care recommendations and stated he will give to Dr. Macias.
[2019-06-16 07:20] LABS: VITAMIN D, 25-HYDROXY 28.4 ng/mL (30-100)
[2019-06-16 08:00] VITALS: BP 100/77
--- NOTE | 2019-06-16 08:19 | NUR ---
ECHO BEING PERFORMED.
--- NOTE | 2019-06-16 09:17 | NUR ---
TOLERATED PO MEDS WELL WHOLE IN APPLESAUCE. STATES THIS WAS EASIER FOR HIM INSTEAD OF TAKING MEDS WHOLE WITH SIPS OF WATER.
--- NOTE | 2019-06-16 09:18 | NUR ---
IN TO SEE PT.
--- NOTE | 2019-06-16 10:15 | NUR ---
Occupational therapy orders received and nursing screen. Will follow up with the patient for an OT evaluation. Thank you. Jemma Hernandez, OTR/L
--- NOTE | 2019-06-16 10:23 | NUR ---
PHYSICAL THERAPY Screen and PT eval received will follow thank you. Veronica Reeves PT
--- NOTE | 2019-06-16 11:58 | NUR ---
PT IS CURRENTLY SHORT TERM CARE AT [facility] AND WISHES TO RETURN WHEN MEDICALLY STABLE. WILL REQUIRE A PRECERT BEFORE RETURNING.
[2019-06-16 12:00] VITALS: BP 103/73
--- NOTE | 2019-06-16 12:04 | NUR ---
RIANNA faxed clinical updates to [facility] on this date. Patient will need a new precert before returning upon discharge once medically stable.
--- NOTE | 2019-06-16 13:40 | NUR ---
Physical Therapy evaluation completed on with full evaluation to follow. Recommend physical therapy per plan of care and return to SNF for further rehab upon discharge. Thank you for this referral. Veronica Reeves PT
--- NOTE | 2019-06-16 13:47 | NUR ---
Occupational Therapy evaluation completed on four with full evaluation to follow. Recommend occupational therapy per plan of care and SNF upon discharge. Thank you for this referral. Jemma Hernandez OTR/L
--- NOTE | 2019-06-16 15:11 | NUR ---
WOUND CARE DONE. TOLERATED WELL. NO COMPLAINTS VOICED.
--- NOTE | 2019-06-16 15:13 | NUR ---
CALLED CONSULT TO , SAID HE DOES NOT MANAGE HAND WOUNDS. NOTIFIED. OK TO D/C CONSULT ORDER.
[2019-06-16 16:00] VITALS: BP 99/60
--- NOTE | 2019-06-16 18:59 | NUR ---
CALLED BACK AND SAID HE WILL SEE PT TOMORROW. WOULD LIKE TO BE RECONSULTED. SEE ORDERS.
--- NOTE | 2019-06-16 19:02 | NUR ---
SMALL BM FOR CLEAR LIQUID/MUCUS. NOTIFIED. NO NEW ORDERS RECD.
[2019-06-16 20:00] VITALS: BP 89/66
[2019-06-16 21:36] VITALS: BP 92/60
--- NOTE | 2019-06-16 21:36 | NUR ---
PATIENT MBP 92/60. NOTIFIED DR. SANJARI. AMBRIZ TO GIVE SCHEDULED DOSE OF CARDIZEM AT THIS TIME.
--- NOTE | 2019-06-16 23:05 | NUR ---
PATIENT MEDICATED WITH TYLENOL FOR LEFT RIBS AND HIP PAIN. RATES 09/08. WILL CHECK EFFECTIVENESS.
[2019-06-17] VITALS: BP 80/50
[2019-06-17 00:15] VITALS: BP 80/54
--- NOTE | 2019-06-17 00:46 | NUR ---
NOTIFIED DR. WASHBURN OF PATIENTS NEW BLOOD PRESSURE, 80/54. NO NEW ORDERS RECEIVED. WILL CONTINUE TO MONITOR.
--- NOTE | 2019-06-17 03:23 | NUR ---
PATIENT SLEEPING, NO SIGNS OF DISTRESS. RESPIRATIONS EASY,NON LABORED. BED IN LOWEST POSITION,CALL LIGHT WITHIN REACH. BED ALARM ON WILL CONTINUE TO MONITOR.
--- NOTE | 2019-06-17 03:51 | NUR ---
Upon discharge recommend patient to follow up for wound care in outpatient setting continue current wound care orders at discharging facility.
--- NOTE | 2019-06-17 04:09 | NUR ---
NOTIFIED DR. WASHBURN PATIENT HAS NO DNR-CC PAPERWORK SIGNED BY THE PHYSICAN. [facility] PAPERWORK STATES HE IS A FULL CODE. PER DR. WASHBURN CHANGE PATIENTS CODE STATUS TO FULL CODE AND IT WILL BE ADDRESSED IN THE AM.
[2019-06-17 06:29] LABS: BASO % 0.2 % (0.0-1.0); EOS # 0.1 10*3/uL (0.0-0.4); EOS % 1.5 % (1.0-4.0); HEMATOCRIT 27.7 % (42.0-52.0); LYMPH # 1.5 10*3/uL (1.3-4.4); MEAN CORPUSCULAR HGB 29.7 pg (27.0-31.0); MEAN CORPUSCULAR HGB CONC 30.7 g/dl (33.0-37.0); MEAN PLATELET VOLUME 11.5 fl (9.6-12.3); MONO # 0.3 10*3/uL (0.1-1.0); MONO % 5.9 % (3.0-9.0); NEUT # 2.6 10*3/uL (2.3-7.9); NEUT % 57.6 % (47.0-73.0); NUCLEATED RED BLOOD CELL 0.4 % (0.0-0.0); PLATELET COUNT AUTOMATED 227 10*3/uL (130-400); RED BLOOD COUNT 2.86 10*6/uL (4.50-5.90); RED CELL DISTRI WIDTH 18.6 % (0-14.5); WHITE BLOOD COUNT 4.6 10*3/uL (4.8-10.8)
[2019-06-17 06:31] LABS: BUN 18 mg/dl (7-24); CHLORIDE 103 mmol/L (98-107); CREATININE 1.02 mg/dL (0.70-1.30); SODIUM 137 mmol/L (136-145)
[2019-06-17 06:38] LABS: MEAN CELL VOLUME 96.9 fl (80.0-94.0)
--- NOTE | 2019-06-17 07:28 | NUR ---
INFORMED OF CODE CHANGE LAST NIGHT. ASKED PHYSICIANS TO VERIFY CODE STATUS DURING ROUNDS TODAY. SAID OK.
[2019-06-17 08:00] VITALS: BP 100/68
--- NOTE | 2019-06-17 08:48 | NUR ---
OT NOTE Pt was seen this A.M. 1:1 for 24 minute OT session. Upon arrival pt was supine in bed. Pt identified by name and and had no complaints at this time. Pt's breakfast tray arrived. Pt was repositioned in bed with maxA x 2 due to being down in bed and R lateral lean. Head of bed elevated for safety concerns with self feeding. Pt required maxA for set up of tray and was able to manage all utensils with supervision using his RUE. Drinks managed with Cecil due to poor safety engineer pressure vessels increasing risk of spills. All drinks were put into cups with lid and straw and pt was able to manage them with CGA. After self feeding was completed pt presented with quick onset of fatigue resulting in no other tasks being completed. BUE's elevated on pillows for edema control. Pt was left supine in bed with head of bed elevated, call light in reach, and bed alarm activated for safety. Continue with rec D/C plan to SNF. KERMIT Hobbs/Julianne
--- NOTE | 2019-06-17 09:08 | NUR ---
ECHO BEING COMPLETED AT THIS TIME.
--- NOTE | 2019-06-17 09:44 | NUR ---
Dr. Cedeño notified of wound care recomendations
--- NOTE | 2019-06-17 10:16 | NUR ---
UNABLE TO OBTAIN PREDEBRIDEMENT PHOTO/MEASUREMENTS OF LEFT HAND WOUND. HAD ALREADY STARTED WHEN THE CAMERA ARRIVED TO THE ROOM.
--- NOTE | 2019-06-17 11:12 | NUR ---
PHYSICAL THERAPY Patient seen this am 1:1 for therapy visit and was resting supine in bed upon therapist arrival. Patient presented with continuous O2 via NC and B heel protectors, voicing c/o of Penis burning when attempting to place urinal. Patient identified by name / and declined therapist request to transfer to EOB as OT embalmer assistant was also present for observation this session, stating he was afraid of falling due to overall weakness. Patient stated he understood, however still did not want to attempt transfer, instead agreed to and performed supine B LE therex, all planes, x 15 reps each to improve LE ROM / Strength. Patient tolerated all ex without further c/o, however did state again he was experiencing Penis / Scrotum discomfort. Nurse was notified and requested patient attendant to adjust depends undergarment and apply lotion PRN. Patient remained in bed with all bed side rails elevated, call light, tray table and bed alarm activated for safety. Will continue per POC as tolerated, total treatment time 14 minutes. Alvaro Aranda, TARE WORKER
--- NOTE | 2019-06-17 11:53 | NUR ---
BED BATH AND LINEN CHANGE COMPLETED. TOLERATED WELL.
[2019-06-17 12:00] VITALS: BP 102/67
--- NOTE | 2019-06-17 12:01 | NUR ---
RIANNA was notified that [facility] will want updates on patient Thursday before making a decision to accept.
--- NOTE | 2019-06-17 12:03 | NUR ---
[place] Started with Al Sharp on this date.
--- NOTE | 2019-06-17 12:47 | NUR ---
PHYSICAL THERAPY CO-SIGN I approve of the Physical Therapy notes written above. KENDRICK MORALES PT, DPT
--- NOTE | 2019-06-17 12:49 | NUR ---
OCCUPATIONAL THERAPY CO-SIGN I approve of the Occupational Therapy notes written above. EBONI TORRES, OTR/L
--- NOTE | 2019-06-17 14:21 | NUR ---
ENCOURAGED TO FEED SELF. TRAY SET UP AND FOOD CUT FOR EASE OF EATING. PT DOING WELL.
[2019-06-17 16:00] VITALS: BP 97/72
[2019-06-17 20:00] VITALS: BP 99/61
[2019-06-18] VITALS: BP 107/66
[2019-06-18 06:40] LABS: BASO % 0.2 % (0.0-1.0); EOS # 0.1 10*3/uL (0.0-0.4); EOS % 1.2 % (1.0-4.0); HEMATOCRIT 28.9 % (42.0-52.0); LYMPH # 1.4 10*3/uL (1.3-4.4); LYMPH % 28.6 % (27.0-41.0); MEAN CELL VOLUME 97.6 fl (80.0-94.0); MEAN CORPUSCULAR HGB 29.4 pg (27.0-31.0); MEAN CORPUSCULAR HGB CONC 30.1 g/dl (33.0-37.0); MEAN PLATELET VOLUME 11.5 fl (9.6-12.3); MONO # 0.3 10*3/uL (0.1-1.0); MONO % 5.7 % (3.0-9.0); NEUT # 3.1 10*3/uL (2.3-7.9); NEUT % 62.9 % (47.0-73.0); PLATELET COUNT AUTOMATED 235 10*3/uL (130-400); RED BLOOD COUNT 2.96 10*6/uL (4.50-5.90); RED CELL DISTRI WIDTH 18.8 % (0-14.5); WHITE BLOOD COUNT 4.9 10*3/uL (4.8-10.8)
[2019-06-18 06:59] LABS: BUN 16 mg/dl (7-24); CHLORIDE 105 mmol/L (98-107); CREATININE 0.94 mg/dL (0.70-1.30); POTASSIUM 3.3 mmol/L (3.5-5.1); SODIUM 139 mmol/L (136-145)
[2019-06-18 08:00] VITALS: BP 110/74
[2019-06-18 12:00] VITALS: BP 102/74
[2019-06-18 16:00] VITALS: BP 91/67
[2019-06-18 20:00] VITALS: BP 95/72
--- NOTE | 2019-06-18 23:52 | NUR ---
NOTIFIED OF BP 90/58. NO NEW ORDERS RECD.
[2019-06-19] VITALS (7 sets, daily range): BP systolic 90–112; BP diastolic 58–81
--- NOTE | 2019-06-19 05:19 | NUR ---
24HR CHART CHECK COMPLETED
[2019-06-19 06:08] LABS: BUN 15 mg/dl (7-24); CHLORIDE 107 mmol/L (98-107); CREATININE 0.93 mg/dL (0.70-1.30); POTASSIUM 3.4 mmol/L (3.5-5.1); SODIUM 140 mmol/L (136-145)
[2019-06-19 06:12] LABS: BASO % 0.4 % (0.0-1.0); EOS # 0.1 10*3/uL (0.0-0.4); EOS % 1.2 % (1.0-4.0); HEMATOCRIT 29.9 % (42.0-52.0); LYMPH # 1.5 10*3/uL (1.3-4.4); LYMPH % 25.4 % (27.0-41.0); MEAN CELL VOLUME 98.7 fl (80.0-94.0); MEAN CORPUSCULAR HGB 29.4 pg (27.0-31.0); MEAN CORPUSCULAR HGB CONC 29.8 g/dl (33.0-37.0); MEAN PLATELET VOLUME 11.4 fl (9.6-12.3); MONO # 0.3 10*3/uL (0.1-1.0); MONO % 5.4 % (3.0-9.0); NEUT # 3.8 10*3/uL (2.3-7.9); NEUT % 65.7 % (47.0-73.0); PLATELET COUNT AUTOMATED 234 10*3/uL (130-400); RED BLOOD COUNT 3.03 10*6/uL (4.50-5.90); WHITE BLOOD COUNT 5.7 10*3/uL (4.8-10.8)
--- NOTE | 2019-06-19 09:05 | NUR ---
PT RESTING IN BED/ NO DISTRESS NOTED WILL MONITOR
--- NOTE | 2019-06-19 21:56 | NUR ---
PT BP 98/64 MANUALLY. HR 77. 90 MG CARDIZEM DUE FOR 2200. AWARE. INSTRUCTED TO HOLD AT THIS TIME.
[2019-06-20] VITALS: BP 108/67
--- NOTE | 2019-06-20 00:32 | NUR ---
PT SOUNDS MOIST WITH INEFFECTIVE COUGH. PT ENCOURAGED TCDB & REPOSITION OFTEN. RN OFFERED TO SUCTION PT BUT PT REPLIES "HELL NO, THERE'S NO NEED FOR ANY OF THAT." WILL MONITOR. CALL LIGHT IN REACH. BED ALARM INTACT.
[2019-06-20 06:02] LABS: BASO % 0.5 % (0.0-1.0); EOS # 0.1 10*3/uL (0.0-0.4); EOS % 1.1 % (1.0-4.0); HEMATOCRIT 31.4 % (42.0-52.0); LYMPH # 1.7 10*3/uL (1.3-4.4); LYMPH % 26.8 % (27.0-41.0); MEAN CELL VOLUME 99.1 fl (80.0-94.0); MEAN CORPUSCULAR HGB 29.7 pg (27.0-31.0); MEAN CORPUSCULAR HGB CONC 29.9 g/dl (33.0-37.0); MEAN PLATELET VOLUME 11.4 fl (9.6-12.3); MONO # 0.5 10*3/uL (0.1-1.0); MONO % 8.1 % (3.0-9.0); NEUT # 3.8 10*3/uL (2.3-7.9); NEUT % 61.4 % (47.0-73.0); PLATELET COUNT AUTOMATED 227 10*3/uL (130-400); RED BLOOD COUNT 3.17 10*6/uL (4.50-5.90); RED CELL DISTRI WIDTH 18.9 % (0-14.5); WHITE BLOOD COUNT 6.3 10*3/uL (4.8-10.8)
[2019-06-20 06:07] LABS: BUN 15 mg/dl (7-24); CHLORIDE 106 mmol/L (98-107); CREATININE 0.95 mg/dL (0.70-1.30); POTASSIUM 3.4 mmol/L (3.5-5.1); SODIUM 136 mmol/L (136-145)
[2019-06-20 08:00] VITALS: BP 122/75
--- NOTE | 2019-06-20 09:35 | NUR ---
PHYSICAL THERAPY Patient seen this am 1:1 for therapy visit and was resting supine in bed with continuos O2-1L via NC upon therapist arrival. Patient recorded SpO2 94%, HR 92 bpm prior to treatment and identified by name / . OT technology assistant was also present for observation only this session as patient presented with L hand, R foot gauze wound wraps, voicing no c/o's pain, however feeling very weak. Patient transfers supine to sit EOB with MAX A x 2, tolerating static EOB sit, CGA, x 10 minutes. Patient demonstrated mild L side lean and stated several times he was afraid of falling. Patient received therapist encouragement and wa easily redirected to focus on task, tolerating all treatment without further c/o. Patient returned to supine in bed MAX A x 2 and remained with HOB elevated, call light, tray table, telephone, B heel protectors, bed alarm for safety. Will continue per POC as tolerated, total treatment time 15 minutes. Alvaro Aranda, ROLE PLAYER
--- NOTE | 2019-06-20 10:30 | NUR ---
OT NOTE Pt was seen this A.M. 1:1 for 20 minute OT session. Upon arrival pt was supine in bed. Pt identified by name and and had no complaints at this time other than "I have no energy, every little task makes me tired." Pt presented to therapy with continuous 1L-O2 via NC which he remained on throughout the entire session. Pt transferred supine to sit EOB with maxA X 2. While sitting EOB pt completed AROM to BUE digit, wrsit, elbow, and shoulder joints over all planes of motion for 1 X 10 to increase and restore maximum functional use. Throughout ROM pt required several rest breaks due to quick onset of fatigue. Pt tolerated sitting EOB for aprox 10 minutes before requesting to lay back down. Pt then transferred sit to supine with maxA x 2 and was repositioned in bed with maxA X 2. There he was left with call light in hand, tray table in place, and bed alarm activated for safety. Continue with rec D/C plan to SNF. BRENDA Hobbs
--- NOTE | 2019-06-20 11:15 | NUR ---
PATIENT TAKEN OFF OF O2 FOR 30 MINS. PULSE OX 97% ON ROOM AIR AT REST, PATIENT UNABLE TO AMBULATE PER PHYSICAL THERAPY. DR. JUAREZ NOTIFIED.
[2019-06-20] MEDS ORDERED: PREDNISONE10 MG PO (11:51)
[2019-06-20] MEDS ORDERED: MUCINEX ER600 MG PO (11:51)
[2019-06-20] MEDS ORDERED: LASIX40 MG PO (11:53)
[2019-06-20] MEDS ORDERED: NORCO 5-325 TA1 EACH PO (11:55)
[2019-06-20 12:00] VITALS: BP 103/63
--- NOTE | 2019-06-20 13:10 | NUR ---
Patient is discharged to [facility] via [place] at 1500. Dc information faxed, [place], nursing/kitchen stewardess notified, next of Kin listed no known family to contact.
--- NOTE | 2019-06-20 14:04 | NUR ---
PT REFUSED DC WOUND PHOTOS PT STATES THAT HE JUST HAD DRESSINGS DONE BY THE DOCTOR AND DID NOT WANT THEM REMOVED
--- NOTE | 2019-06-20 14:08 | NUR ---
REPORT CALLED TO GERHARD YU
--- NOTE | 2019-06-20 14:44 | NUR ---
Discharge instructions reviewed with [facility]. receptive and verbalizes understanding. Follow-up care arranged. Written instructions given to [employer]NATIONAL B[employer]ER, IV REMOVED, LEFT VIA STRETCHER BY [facility]. KELL TAPIA
--- NOTE | 2019-06-21 07:59 | NUR ---
PHYSICAL THERAPY CO-SIGN I approve of the Physical Therapy notes written above. KENDRICK MORALES, PT,DPT
--- NOTE | 2019-06-21 08:21 | NUR ---
OCCUPATIONAL THERAPY CO-SIGN I approve of the Occupational Therapy notes written above. EBONI TORRES, OTR/L
== END 2019-06-20 14:45 | disposition other institution (70) | DRG 291 ==
LOC: ED 14:35 → EDHOLD 21:52 → 4E 21:52
PROVIDERS: Emergency Medicine; Hospitalist; Internal Medicine; ADMIT Family Medicine
PROC: 0HBGXZZ Excision of Left Hand Skin, External Approach (ICD-10-PCS; principal; 2019-06-17)
DX: I50.31 Acute diastolic (congestive) heart failure (principal); J96.21 Acute and chronic respiratory failure with hypoxia; E43 Unspecified severe protein-calorie malnutrition; I48.20 Chronic atrial fibrillation, unspecified; R65.10 Systemic inflammatory response syndrome (SIRS) of non-infectious origin without acute organ dysfunction; E11.52 Type 2 diabetes mellitus with diabetic peripheral angiopathy with gangrene; I96 Gangrene, not elsewhere classified; E87.6 Hypokalemia; F32.9 Major depressive disorder, single episode, unspecified; E11.65 Type 2 diabetes mellitus with hyperglycemia; K21.9 Gastro-esophageal reflux disease without esophagitis; E11.51 Type 2 diabetes mellitus with diabetic peripheral angiopathy without gangrene; J43.9 Emphysema, unspecified; E03.9 Hypothyroidism, unspecified; D53.9 Nutritional anemia, unspecified; E87.8 Other disorders of electrolyte and fluid balance, not elsewhere classified; F17.210 Nicotine dependence, cigarettes, uncomplicated; Z51.5 Encounter for palliative care; Z66 Do not resuscitate; I87.2 Venous insufficiency (chronic) (peripheral); B35.1 Tinea unguium; L89.891 Pressure ulcer of other site, stage 1; Z20.828 Contact with and (suspected) exposure to other viral communicable diseases; Z68.31 Body mass index [BMI] 31.0-31.9, adult; Z79.899 Other long term (current) drug therapy; Z80.0 Family history of malignant neoplasm of digestive organs; Z79.4 Long term (current) use of insulin; Z71.6 Tobacco abuse counseling; Z86.73 Personal history of transient ischemic attack (TIA), and cerebral infarction without residual deficits; Z90.49 Acquired absence of other specified parts of digestive tract; Z79.82 Long term (current) use of aspirin

== ENCOUNTER → 2019-08-19 | Outpatient (CLI) | payer OTHER, MEDICAID ==
[~2019-08-19] MED LIST changes: +ACETAMINOPHEN500 M5 PO; +ALBUTEROL1.25 MG/3 INH; +ARTIFICIAL TEAR1514 OP; +ASPIRIN81 M1 PO; +DILTIAZEM HCL90 MG PO; +DULCOLAX10 M1 R; +ELIQUIS5 M1 PO; +FLEET ENEMA EX230 M1 R; +GOOD SENSE ACID20 MG PO; +HUMALOG100 UNIT/2 SC; +Ipratropium Brom3 ML INH; +LASIX40 MG PO; +LIDODERM1 EACH T; +MILK OF MA400 MG/52 PO; +MILLTRIUM SENI1 EACH PO; +MUCINEX ER600 MG PO; +NICODERM CQ1 EAC2 T; +NORCO 5-325 TA1 EACH PO; +OMEPRAZOLE20 M2 PO; +OXYBUTYNIN10 MG PO; +POLYSPORIN OI28.3 GM T; +PREDNISONE10 MG PO; +ZOFRAN4 MG PO
== END | disposition home or self-care (01) ==
LOC: CT 10:00
DX: C61 Malignant neoplasm of prostate (principal)

== ENCOUNTER → 2020-01-04 | Outpatient (CLI) | payer MEDICARE, OTHER ==
[~2020-01-04] MED LIST changes: +ALTOPREV40 M1 PO; +CASODEX50 MG PO; +CIPROFLOXACIN500 M4 PO; +K-TAB20 MEQ PO; +LEXAPRO10 MG PO; +LIDOCAINE PAIN1 EACH T; +MIRTAZAPINE15 M1 PO; +NICODERM CQ1 EACH TD; +REFRESH OPTIVE10 M2 OP; +Synthroid,Lev200 MCG PO; +UNASYN 3 GM VIAL3 GM IV; +VITAMIN C500 M4 PO
== END | disposition home or self-care (01) ==
LOC: NM 09:56
PROVIDERS: ATTEND Urology
DX: C61 Malignant neoplasm of prostate (principal); R97.20 Elevated prostate specific antigen [PSA]; Z96.652 Presence of left artificial knee joint

== ENCOUNTER 2020-04-04 16:51 | Inpatient (IN) | payer MEDICARE, OTHER ==
[~2020-04-04] VITALS: Ht 177.8 cm; Wt 80.3 kg
[2020-04-04] VITALS (9 sets, daily range): BP systolic 72–174; BP diastolic 36–68
[~2020-04-04 16:51] MED LIST changes: +ELIGARD45 MG SC
[2020-04-04 17:20] LABS: BASO % 0.2 % (0.0-1.0); EOS % 0.3 % (1.0-4.0); HEMATOCRIT 39.4 % (42.0-52.0); LYMPH # 0.8 10*3/uL (1.3-4.4); LYMPH % 6.7 % (27.0-41.0); MEAN CELL VOLUME 83.3 fl (80.0-94.0); MEAN CORPUSCULAR HGB 24.3 pg (27.0-31.0); MEAN CORPUSCULAR HGB CONC 29.2 g/dl (33.0-37.0); MEAN PLATELET VOLUME 12.7 fl (9.6-12.3); MONO # 0.8 10*3/uL (0.1-1.0); MONO % 7.2 % (3.0-9.0); NEUT # 9.7 10*3/uL (2.3-7.9); NEUT % 84.5 % (47.0-73.0); PLATELET COUNT AUTOMATED 189 10*3/uL (130-400); RED BLOOD COUNT 4.73 10*6/uL (4.50-5.90); RED CELL DISTRI WIDTH 19.5 % (0-14.5); WHITE BLOOD COUNT 11.5 10*3/uL (4.8-10.8)
[2020-04-04 17:34] LABS: ACT PARTIAL THROMBO TIME 25.8 SECONDS (20.0-32.1); ALBUMIN 2.2 gm/dl (3.1-4.5); ALKALINE PHOSPHATASE 216 U/L (45-117); BUN 29 mg/dl (7-24); CHLORIDE 105 mmol/L (98-107); CREATININE 1.04 mg/dL (0.70-1.30); INTERNATIONAL NORM RATIO 1.1 (2.0-3.5); LIPASE 213 U/L (73-393); POTASSIUM 3.6 mmol/L (3.5-5.1); SGOT/AST 83 IU/L (3-35); SGPT/ALT 39 U/L (12-78); SODIUM 137 mmol/L (136-145); TOTAL PROTEIN 7.6 gm/dL (6.4-8.2); TROPONIN I < 0.015 ng/ml (<0.045)
[2020-04-04 22:16] LABS: ABG BASE EXCESS 0.5 mmol/L (-2.0-2.0); ARTERIAL BLOOD GAS PH 7.518 (7.35-7.45)
[2020-04-05 01:00] VITALS: BP 70/38
[2020-04-05 03:00] VITALS: BP 98/60
[2020-04-05 06:11] LABS: BASO % 0.2 % (0.0-1.0); EOS # 0.1 10*3/uL (0.0-0.4); EOS % 0.5 % (1.0-4.0); HEMATOCRIT 31.6 % (42.0-52.0); LYMPH # 0.9 10*3/uL (1.3-4.4); LYMPH % 9.6 % (27.0-41.0); MEAN CELL VOLUME 82.3 fl (80.0-94.0); MEAN CORPUSCULAR HGB 24.7 pg (27.0-31.0); MEAN CORPUSCULAR HGB CONC 30.1 g/dl (33.0-37.0); MEAN PLATELET VOLUME 12.5 fl (9.6-12.3); MONO # 0.8 10*3/uL (0.1-1.0); NEUT # 7.8 10*3/uL (2.3-7.9); NEUT % 80.5 % (47.0-73.0); PLATELET COUNT AUTOMATED 171 10*3/uL (130-400); RED BLOOD COUNT 3.84 10*6/uL (4.50-5.90); RED CELL DISTRI WIDTH 19.1 % (0-14.5); WHITE BLOOD COUNT 9.6 10*3/uL (4.8-10.8)
[2020-04-05 06:19] LABS: ALBUMIN 2.5 gm/dl (3.1-4.5); BUN 23 mg/dl (7-24); CHLORIDE 109 mmol/L (98-107); CREATININE 0.76 mg/dL (0.70-1.30); POTASSIUM 3.1 mmol/L (3.5-5.1); SGOT/AST 76 IU/L (3-35); SGPT/ALT 29 U/L (12-78); SODIUM 139 mmol/L (136-145); TOTAL PROTEIN 7.2 gm/dL (6.4-8.2)
[2020-04-05 06:20] LABS: ACT PARTIAL THROMBO TIME 26.8 SECONDS (20.0-32.1); INTERNATIONAL NORM RATIO 1.1 (2.0-3.5)
[2020-04-05 06:23] LABS: ALKALINE PHOSPHATASE 168 U/L (45-117); THYROID STIM HORMONE (HS) 0.447 uIU/ml (0.358-4.75)
[2020-04-05] MEDS ORDERED: ATENOLOL25 MG PO (06:54)
[2020-04-05] MEDS ORDERED: BIOFREEZE118 ML T (06:55)
[2020-04-05 07:19] LABS: BILIRUBIN Negative (Negative); BLOOD 2+ (Negative); CLARITY Clear (Clear); COLOR Yellow (Yellow); GLUCOSE Negative (Negative); KETONE Negative (Negative); LEUKO ESTERASE 2+ (Negative); NITRITE Negative (Negative); PH 5.5 (4.5-8.0); SPECIFIC GRAVITY 1.015 (1.001-1.030)
[2020-04-05] MEDS ORDERED: HUMALOG100 UNIT/2 SC (07:23)
[2020-04-05] MEDS ORDERED: Ipratropium Brom3 ML INH (07:24)
[2020-04-05] MEDS ORDERED: MILK OF MA400 MG/5 M PO (07:25)
[2020-04-05] MEDS ORDERED: NYSTATIN1 EAC3 T (07:27)
[2020-04-05] MEDS ORDERED: MIRALAX17 GM PO (07:28)
[2020-04-05] MEDS ORDERED: OMEPRAZOLE MAGN20 MG PO (07:29)
[2020-04-05 07:31] LABS: WBC TNTC wbc/hpf (0-5)
[2020-04-05] MEDS ORDERED: ZINC-220220 MG PO (07:32)
[2020-04-05 08:00] VITALS: BP 104/75
[2020-04-05 12:00] VITALS: BP 99/58
[2020-04-05 16:00] VITALS: BP 90/64
[2020-04-05 20:00] VITALS: BP 112/61
[2020-04-06] VITALS: BP 115/74
[2020-04-06 05:22] LABS: ALBUMIN 3.1 gm/dl (3.1-4.5); ALKALINE PHOSPHATASE 178 U/L (45-117); BUN 14 mg/dl (7-24); CHLORIDE 109 mmol/L (98-107); CREATININE 0.69 mg/dL (0.70-1.30); POTASSIUM 3.4 mmol/L (3.5-5.1); SGOT/AST 93 IU/L (3-35); SGPT/ALT 35 U/L (12-78); SODIUM 140 mmol/L (136-145); TOTAL PROTEIN 7.4 gm/dL (6.4-8.2)
[2020-04-06 06:13] LABS: BASO % 0.1 % (0.0-1.0); EOS # 0.1 10*3/uL (0.0-0.4); EOS % 0.5 % (1.0-4.0); HEMATOCRIT 32.1 % (42.0-52.0); LYMPH # 0.9 10*3/uL (1.3-4.4); LYMPH % 9.8 % (27.0-41.0); MEAN CELL VOLUME 82.9 fl (80.0-94.0); MEAN CORPUSCULAR HGB 24.8 pg (27.0-31.0); MEAN CORPUSCULAR HGB CONC 29.9 g/dl (33.0-37.0); MEAN PLATELET VOLUME 12.4 fl (9.6-12.3); MONO # 0.6 10*3/uL (0.1-1.0); MONO % 6.7 % (3.0-9.0); NEUT # 7.7 10*3/uL (2.3-7.9); NEUT % 81.7 % (47.0-73.0); PLATELET COUNT AUTOMATED 164 10*3/uL (130-400); RED BLOOD COUNT 3.87 10*6/uL (4.50-5.90); RED CELL DISTRI WIDTH 19.2 % (0-14.5); WHITE BLOOD COUNT 9.4 10*3/uL (4.8-10.8)
[2020-04-06 08:00] VITALS: BP 141/84
[2020-04-06 12:00] VITALS: BP 148/61
[2020-04-06 16:00] VITALS: BP 153/100
[2020-04-06 20:00] VITALS: BP 133/92
[2020-04-07] VITALS: BP 116/78
[2020-04-07 06:04] LABS: BUN 11 mg/dl (7-24); CHLORIDE 113 mmol/L (98-107); POTASSIUM 3.2 mmol/L (3.5-5.1); SODIUM 143 mmol/L (136-145)
[2020-04-07 08:00] VITALS: BP 124/82
[2020-04-07 12:00] VITALS: BP 125/74
[2020-04-07 16:00] VITALS: BP 130/62
[2020-04-07 20:00] VITALS: BP 108/72
[2020-04-08] VITALS (8 sets, daily range): BP systolic 82–156; BP diastolic 57–75
[2020-04-08 05:42] LABS: BUN 12 mg/dl (7-24); CHLORIDE 109 mmol/L (98-107); CREATININE 0.65 mg/dL (0.70-1.30); POTASSIUM 3.8 mmol/L (3.5-5.1); SODIUM 138 mmol/L (136-145)
[2020-04-08 06:06] LABS: BASO % 0.3 % (0.0-1.0); EOS # 0.1 10*3/uL (0.0-0.4); EOS % 0.6 % (1.0-4.0); HEMATOCRIT 27.4 % (42.0-52.0); LYMPH # 0.9 10*3/uL (1.3-4.4); LYMPH % 11.7 % (27.0-41.0); MEAN CELL VOLUME 81.8 fl (80.0-94.0); MEAN CORPUSCULAR HGB 25.1 pg (27.0-31.0); MEAN CORPUSCULAR HGB CONC 30.7 g/dl (33.0-37.0); MEAN PLATELET VOLUME 12.6 fl (9.6-12.3); MONO # 0.4 10*3/uL (0.1-1.0); NEUT # 6.5 10*3/uL (2.3-7.9); NEUT % 81.5 % (47.0-73.0); PLATELET COUNT AUTOMATED 194 10*3/uL (130-400); RED BLOOD COUNT 3.35 10*6/uL (4.50-5.90); RED CELL DISTRI WIDTH 18.9 % (0-14.5)
[2020-04-09] VITALS: BP 98/78
[2020-04-09 05:56] LABS: BUN 14 mg/dl (7-24); CHLORIDE 106 mmol/L (98-107); CREATININE 0.64 mg/dL (0.70-1.30); POTASSIUM 3.6 mmol/L (3.5-5.1); SODIUM 137 mmol/L (136-145)
[2020-04-09 07:42] LABS: BASO % 0.1 % (0.0-1.0); EOS # 0.1 10*3/uL (0.0-0.4); EOS % 0.8 % (1.0-4.0); HEMATOCRIT 27.2 % (42.0-52.0); LYMPH # 1.1 10*3/uL (1.3-4.4); LYMPH % 14.8 % (27.0-41.0); MEAN CELL VOLUME 81.9 fl (80.0-94.0); MEAN CORPUSCULAR HGB 25.6 pg (27.0-31.0); MEAN CORPUSCULAR HGB CONC 31.3 g/dl (33.0-37.0); MEAN PLATELET VOLUME 10.8 fl (9.6-12.3); MONO # 0.4 10*3/uL (0.1-1.0); MONO % 4.6 % (3.0-9.0); NEUT # 5.9 10*3/uL (2.3-7.9); NEUT % 78.6 % (47.0-73.0); PLATELET COUNT AUTOMATED 195 10*3/uL (130-400); RED BLOOD COUNT 3.32 10*6/uL (4.50-5.90); RED CELL DISTRI WIDTH 18.9 % (0-14.5); WHITE BLOOD COUNT 7.6 10*3/uL (4.8-10.8)
[2020-04-09 08:00] VITALS: BP 110/74; BP 111/74
[2020-04-09 12:00] VITALS: BP 145/53; BP 96/42
[2020-04-09 15:20] VITALS: BP 87/52
[2020-04-09 20:00] VITALS: BP 104/75
[2020-04-10] VITALS: BP 95/67
[2020-04-10 06:22] LABS: BUN 18 mg/dl (7-24); CHLORIDE 109 mmol/L (98-107); CREATININE 0.73 mg/dL (0.70-1.30); POTASSIUM 4.3 mmol/L (3.5-5.1); SODIUM 141 mmol/L (136-145)
[2020-04-10 08:00] VITALS: BP 100/67
[2020-04-10 12:00] VITALS: BP 100/74
[2020-04-10] MEDS ORDERED: OMNICEF300 MG PO (15:56)
[2020-04-10] MEDS ORDERED: SYNTHROID,LEV175 MCG PO (15:56)
[2020-04-10 16:00] VITALS: BP 108/74
== END 2020-04-10 19:37 | DRG 871 ==
LOC: ED 16:51 → EDHOLD 18:14 → 4E 18:14
PROVIDERS: Emergency Medicine; Hospitalist; Internal Medicine; Social Worker Clinical; ADMIT Internal Medicine; ATTEND Internal Medicine
PROC: BD11YZZ Fluoroscopy of Esophagus using Other Contrast (ICD-10-PCS; principal; 2020-04-10)
DX: A41.51 Sepsis due to Escherichia coli [E. coli] (principal); J18.9 Pneumonia, unspecified organism; J96.01 Acute respiratory failure with hypoxia; E43 Unspecified severe protein-calorie malnutrition; G93.41 Metabolic encephalopathy; I50.32 Chronic diastolic (congestive) heart failure; J96.10 Chronic respiratory failure, unspecified whether with hypoxia or hypercapnia; F33.9 Major depressive disorder, recurrent, unspecified; I48.21 Permanent atrial fibrillation; Z66 Do not resuscitate; R65.20 Severe sepsis without septic shock; K21.9 Gastro-esophageal reflux disease without esophagitis; I48.91 Unspecified atrial fibrillation; R74.01 Elevation of levels of liver transaminase levels; Z51.5 Encounter for palliative care; I95.89 Other hypotension; E86.0 Dehydration; D64.9 Anemia, unspecified; E11.65 Type 2 diabetes mellitus with hyperglycemia; E53.8 Deficiency of other specified B group vitamins; E78.5 Hyperlipidemia, unspecified; E11.51 Type 2 diabetes mellitus with diabetic peripheral angiopathy without gangrene; E03.9 Hypothyroidism, unspecified; K76.9 Liver disease, unspecified; E87.6 Hypokalemia; E83.39 Other disorders of phosphorus metabolism; E86.1 Hypovolemia; Z79.51 Long term (current) use of inhaled steroids; Z79.1 Long term (current) use of non-steroidal anti-inflammatories (NSAID); Z79.82 Long term (current) use of aspirin; Z79.899 Other long term (current) drug therapy; Z79.4 Long term (current) use of insulin; Z90.49 Acquired absence of other specified parts of digestive tract